=== PATIENT | female | born 1995 | race Caucasian/White ===

== ENCOUNTER 2018-06-16 15:34 | Emergency (ER) | payer SELFPAY ==
--- NOTE | 2018-06-16 16:56 | ED ---
Lower Extremity - HPI Summary HPI Summary: Is is not patient is a 23-year-old female who presents to the ED with a left knee injury. Patient states she fell on left knee yesterday, has been ambulatory, but with pain. She tore her ACL on the same in the several years ago. She states this feels different. She does not feel laxity in the joint. She states she feels there is a bruise darkly over the patellar area. She denies any numbness or tingling. Pulses +2 intact bilaterally both pedal and posterior tibial. - History of Current Complaint Chief Complaint: EDFall Stated Complaint: FELL/LEFT KNEE INJURY PER PT Time Seen by Provider: 06/16/18 15:50 Hx Obtained From: Patient Mechanism Of Injury: Direct Blow Onset of Pain: Hours Onset/Duration: Hours Severity Initially: Mild Severity Currently: Mild Pain Intensity: 8 Pain Scale Used: 0-10 Numeric Timing: Constant Location: Is Discrete @ - left knee abrasion and contusion Character Of Pain: Aching Associated Signs And Symptoms: Negative: Swelling, Redness, Bruising, Fever, Weakness Aggravating Factor(s): Standing, Ambulation Alleviating Factor(s): Rest Able to Bear Weight: No - Risk Factors Gout Risk Factors: Negative DVT Risk Factors: Negative Septic Arthritis Risk Factor: Negative - Allergies/Home Medications Allergies/Adverse Reactions: Allergies Allergy/AdvReac Type Severity Reaction Status Date / Time azithromycin [From Zithromax] Allergy Hives Verified 06/16/18 15:38 Home Medications: Home Medications Ethinyl Estradiol/Drospirenone [Gianvi 3-0.02 mg] 1 tab PO DAILY 06/16/18 [ History Confirmed 06/16/18] PMH/Surg Hx/FS Hx/Imm Hx Previously Healthy: Yes - Immunization History Hx Pertussis Vaccination: No Immunizations Up to Date: Yes Infectious Disease History: No Infectious Disease History: Denies: Traveled Outside the [place] in Last 30 Days - Social History Occupation: Student Lives: Dormitory/Roommates Alcohol Use: Weekly Hx Substance Use: Yes Substance Use Type: Reports: Marijuana Smoking Status (MU): Never Smoked Tobacco Review of Systems Constitutional: Negative Negative: Fever, Chills, Fatigue, Skin Diaphoresis Negative: Palpitations, Chest Pain Negative: Shortness Of Breath, Cough Genitourinary: Negative Positive: no symptoms reported, see HPI Positive: Arthralgia - left knee pain, Myalgia Positive: Other - abrasion to the anterior portion of the L knee Neurological: Negative All Other Systems Reviewed And Are Negative: Yes Physical Exam Triage Information Reviewed: Yes Vital Signs On Initial Exam: Initial Vitals Temp Pulse Resp BP Pulse Ox 97.6 F 116 20 182/98 100 06/16/18 15:35 06/16/18 15:35 06/16/18 15:35 06/16/18 15:35 06/16/18 15:35 Vital Signs Reviewed: Yes Appearance: Positive: Well-Appearing, Well-Nourished Skin: Positive: Other - left knee abrasion Head/Face: Positive: Normal Head/Face Inspection Eyes: Positive: EOMI, Conjunctiva Clear Neck: Positive: Supple, No Lymphadenopathy Respiratory/Lung Sounds: Positive: Clear to Auscultation, Breath Sounds Present Cardiovascular: Positive: RRR, Pulses are Symmetrical in both Upper and Lower Extremities Musculoskeletal: Positive: Pain @ - pain to the left knee Neurological: Positive: Speech Normal Psychiatric: Positive: Affect/Mood Appropriate AVPU Assessment: Alert Diagnostics - Vital Signs Vital Signs Temp Pulse Resp BP Pulse Ox 06/16/18 15:35 97.6 F 116 20 182/98 100 - Laboratory Lab Statement: Any lab studies that have been ordered have been reviewed, and results considered in the medical decision making process. Lower Extremity Course/Dx - Course Course Of Treatment: X-ray obtained which shows postsurgical changes with no evidence of new fracture or injury. Patient is able to flex and extend. There is a 2 cm in diameter abrasion directly over the knee without ecchymosis or swelling surrounding. She is diagnosed with a knee contusion and abrasion. Cleanse wound, wrapped the area and Donald wrapped. Patient is okay for discharge at this time. - Diagnoses Differential Diagnosis/HQI/PQRI: Positive: Contusion, Fracture (Closed), Sprain , Strain Provider Diagnoses: Contusion, knee Discharge - Sign-Out/Discharge Documenting (check all that apply): Patient Departure Patient Received Moderate/Deep Sedation with Procedure: No - Discharge Plan Condition: Stable Disposition: HOME Prescriptions: traMADol TAB* [Ultram*] 50 mg PO Q8H PRN #12 tab MDD 3 PRN Reason: Pain Patient Education Materials: Knee Pain (ED) Referrals: No Primary Care Phys,NOPCP [Primary Care Provider] - Additional Instructions: Keep the area covered Keep an donald wrap to the area for comfort Ibuprofen 600mg three times daily Tramadol 50mg three times daily Take these on opposite schedule to allow for an even pain control - Billing Disposition and Condition Condition: STABLE Disposition: Home
[2018-06-16 17:26] VITALS: BP 133/84
== END 2018-06-16 17:24 | disposition home or self-care (01) ==
LOC: ED 15:34
DX: S80.02XA Contusion of left knee, initial encounter (principal); W01.0XXA Fall on same level from slipping, tripping and stumbling without subsequent striking against object, initial encounter; Z88.3 Allergy status to other anti-infective agents
CPT/HCPCS: 99283